=== PATIENT | male | born 1985 | race Two or more races ===

== ENCOUNTER 2019-06-14 21:11 | Emergency (ER) | payer MEDICAID ==
[~2019-06-14] VITALS: Ht 188 cm; Wt 97.5 kg
[~2019-06-14 21:11] MED LIST: BACTRIM-DS1 EA ORAL; CEPHALEXIN500 MG ORAL; IBUPROFEN600 MG ORAL; KEFLEX500 MG ORAL; MULTIVITAMINS1 EAC2 ORAL; NKM; NORCO 5-325 TA1 EACH ORAL; VICODIN 5-5001 EACH ORAL
--- NOTE | 2019-06-14 21:45 | NUR ---
ED Nurse Note: Patient walked in from home d/t right ankle injury, stated playing basketball and heard a pop. pain /. Patient aao x 4 and ambulatory with right foot unsteady d/t pain. Patient stable upon assessment.
[2019-06-14] MEDS ORDERED: IBUPROFEN600 MG ORAL (22:00)
--- NOTE | 2019-06-14 22:00 | Emergency Room Report ---
History of Present Illness General Chief Complaint: Lower Extremity Injury Source: Patient Present Illness HPI This is a 33-year-old male with no past medical history presents with right ankle and Achilles tendon pain. Patient said that he was playing basketball around 2 PM and felt a pulsating stretching pain to the right ankle area. He thought it was his Achilles. Is been throbbing slightly swollen. He has problem with his Achilles for the last 2 years. Denies any fever chills but denies any nausea vomiting. Nothing made it better. Movement made it worse. Pain is 5 out of 10. He is requesting an MRI. Allergies: Coded Allergies: Dust (Verified Allergy, Severe, allergies, 12/17/12) Patient History Past Medical History: see triage record, old chart reviewed Past Surgical History: none Pertinent Family History: none Social History: Denies: smoking Immunizations: other Reviewed Nursing Documentation: PMH: Agreed; PSxH: Agreed Nursing Documentation-PM Past Medical History: No Stated History Review of Systems Eye: Denies: eye pain, blurred vision ENT: Denies: ear pain, nose congestion, throat swelling Respiratory: Denies: cough, shortness of breath Cardiovascular: Denies: chest pain, palpitations Gastrointestinal: Denies: abdominal pain, diarrhea, nausea, vomiting Musculoskeletal: Reports: joint pain; Denies: back pain Skin: Denies: rash Neurological: Denies: headache, numbness Endocrine: Denies: increased thirst, increased urine Hematologic/Lymphatic: Denies: easy bruising All Other Systems: negative except mentioned in HPI Physical Exam Vital Signs Date Time Temp Pulse Resp B/P (MAP) Pulse Ox O2 Delivery O2 Flow Rate FiO2 06/14/19 21:35 98.4 68 18 125/67 (86) 95 Room Air Vitals normal Sp02 EP Interpretation: reviewed, normal General Appearance: well appearing, no apparent distress, alert Head: normocephalic, atraumatic Eyes: bilateral eye PERRL, bilateral eye EOMI ENT: hearing grossly normal, normal pharynx Neck: full range of motion, supple, no meningismus Respiratory: chest non-tender, lungs clear, normal breath sounds Cardiovascular #1: regular rate, rhythm, no murmur Gastrointestinal: normal bowel sounds, non tender, no mass, no organomegaly, no bruit, non-distended Musculoskeletal: back normal, normal range of motion, gait/station normal, other - Right foot: He has mild tenderness over the medial malleolus. Mild edema. Achilles tendon is stable. No tenderness. Full range of motion of the ankle. Pulses normal. Psychiatric: mood/affect normal Procedures Splinting Splinting : Consent: Verbal Location: Ankle, right Pre-Made Type: CARLOS wrap Pre-Proc Neuro Vasc Exam: normal Post-Proc Neuro Vasc Exam: normal Patient Tolerated: Well Complications: None Medical Decision Making Diagnostic Impression: Primary Impression: Medial ankle sprain Qualified Codes: S93.421A - Sprain of deltoid ligament of right ankle, initial encounter ER Course Patient presents with medial ankle sprain. Very mild. No evidence of fracture dislocation. No evidence of any Achilles tendon injury. Told patient that there is no criteria for emergent MRI. This can be done as an outpatient. Last Vital Signs Date Time Temp Pulse Resp B/P (MAP) Pulse Ox O2 Delivery O2 Flow Rate FiO2 06/14/19 21:35 98.4 68 18 125/67 (86) 95 Room Air Status: improved Disposition: HOME, SELF-CARE Condition: Stable Scripts Ibuprofen* (MOTRIN*) 600 Mg Tablet 600 MG ORAL THREE TIMES A DAY, #30 TAB 0 Refills Prov: Weston Davey MD 06/14/19 Patient Instructions: Ankle Sprain Additional Instructions: Low weight leg. Ice pack to the area. Follow-up with your doctor in 7 days. Continue with pain, your doctor can order an outpatient MRI. Return if symptoms worsen. Weston Davey MD Jun 14, 2019 22:00
--- NOTE | 2019-06-14 22:00 | NUR ---
ED Nurse Note: RIGHT ANKLE CARLOS WRAPPED.
--- NOTE | 2019-06-14 22:05 | NUR ---
ED Nurse Note: patient declined ibuprofen, returned to pyxis.
[2019-06-14 22:13] VITALS: BP 132/75
--- NOTE | 2019-06-14 22:13 | NUR ---
ER DISCHARGE NOTE: Patient is cleared to be discharged per ERMD, pt is aox4, on room air, with stable vital signs. pt was given dc instructions, pt was able to verbalize understanding, pt id band removed. pt took all belongings. pt stable upon discharge.
== END 2019-06-14 22:13 | disposition home or self-care (01) ==
LOC: EMR 22:13
DX: S93.421A Sprain of deltoid ligament of right ankle, initial encounter (principal); X58.XXXA Exposure to other specified factors, initial encounter; Y93.67 Activity, basketball; Y92.9 Unspecified place or not applicable
CPT/HCPCS: 99282

== ENCOUNTER 2019-11-22 22:48 | Emergency (ER) | payer MEDICAID ==
[~2019-11-22] VITALS: Ht 188 cm; Wt 90.7 kg
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
[2019-11-22 23:19] VITALS: BP 133/75
--- NOTE | 2019-11-22 23:25 | NUR ---
ED Nurse Note: Patient taken to CT in stable condition
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
[2019-11-23] MEDS ORDERED: CYCLOBENZAPRINE5 MG ORAL ×2 (00:32→00:33)
[2019-11-23] MEDS ORDERED: NAPROXEN500 M2 ORAL (00:32)
[2019-11-23 00:35] VITALS: BP 130/82
--- NOTE | 2019-11-23 00:35 | NUR ---
ER DISCHARGE NOTE: Patient is cleared to be discharged per ERMD, pt is aox4, on room air, with stable vital signs. pt was given dc and prescription instructions, pt was able to verbalize understanding, pt id band removed. pt is able to ambulate with steady gait. pt took all belongings. pt stable upon discharge.
== END 2019-11-23 00:35 | disposition home or self-care (01) ==
LOC: EMR 23:30
DX: S16.1XXA Strain of muscle, fascia and tendon at neck level, initial encounter (principal); S39.012A Strain of muscle, fascia and tendon of lower back, initial encounter; V43.52XA Car driver injured in collision with other type car in traffic accident, initial encounter; Y92.410 Unspecified street and highway as the place of occurrence of the external cause
CPT/HCPCS: 72125; Z7502; 99284